=== PATIENT | male | born 1995 | race Caucasian/White ===

== ENCOUNTER 2018-05-23 03:38 | Emergency (ER) | payer OTHER, MEDICAID ==
[2018-05-23 03:50] VITALS: PULSE 56; RESP 18; O2SAT 99
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
[2018-05-23 07:29] VITALS: BP 104/70; TEMP 98
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
== END 2018-05-23 06:05 | disposition home or self-care (01) ==
LOC: H.ER 03:38
DX: S09.90XA Unspecified injury of head, initial encounter (principal); V43.62XA Car passenger injured in collision with other type car in traffic accident, initial encounter; Y92.410 Unspecified street and highway as the place of occurrence of the external cause